=== PATIENT | female | born 1980 | race Hispanic/Latino ===

== ENCOUNTER → 2016-06-22 | Outpatient (CLI) | payer OTHER ==
[~2016-06-22] VITALS: Ht 154.9 cm; Wt 79.4 kg
[~2016-06-22] MED LIST: COLA100C PO; LIDOCAINE 2% INJ 100 MG/5 ML SDV (FOR ANES.) As Ordered ONE; NS 1,000 ML IV SCH; PROPOFOL 200 MG/20 ML VIAL As Ordered ONE
--- NOTE | 2016-06-22 09:08 | ROOR ---
Patient Name: Rosenda Johnston Procedure Date: 06/22/2016 8:55 AM Date of : 1980 Age: 35 Room: [facility] Gender: Female Note Status: Finalized Procedure: Colonoscopy Indications: Rectal bleeding Providers: Kishan Shannon Jr, MD Referring MD: SUKHI ISBELL MD Requesting Provider: Medicines: Propofol per Anesthesia Complications: No immediate complications. Procedure: Pre-Anesthesia Assessment: - Prior to the procedure, a History and Physical was performed, and patient medications and allergies were reviewed. The patient is competent. The risks and benefits of the procedure and the sedation options and risks were discussed with the patient. All questions were answered and informed consent was obtained. Patient identification and proposed procedure were verified by the physician and the nurse in the pre-procedure area and in the procedure room. Mental Status Examination: alert and oriented. Airway Examination: normal oropharyngeal airway and neck mobility. Respiratory Examination: clear to auscultation. CV Examination: normal. ASA Grade Assessment: I - A normal, healthy patient. After reviewing the risks and benefits, the patient was deemed in satisfactory condition to undergo the procedure. The anesthesia plan was to use moderate sedation / analgesia (conscious sedation). Immediately prior to administration of medications, the patient was re-assessed for adequacy to receive sedatives. The heart rate, respiratory rate, oxygen saturations, blood pressure, adequacy of pulmonary ventilation, and response to care were monitored throughout the procedure. The physical status of the patient was re-assessed after the procedure. The Colonoscope was introduced through the anus and advanced to the cecum, identified by appendiceal orifice and ileocecal valve. The colonoscopy was performed without difficulty. The patient tolerated the procedure well. The quality of the bowel preparation was adequate and excellent. Findings: The perianal and digital rectal examinations were normal. Pertinent negatives include normal sphincter tone, no palpable rectal lesions and no anal lesion or abnormality was detected. The rectum, recto-sigmoid colon, sigmoid colon, descending colon, transverse colon, ascending colon, cecum, appendiceal orifice and ileocecal valve appeared normal. Impression: - The rectum, recto-sigmoid colon, sigmoid colon, descending colon, transverse colon, ascending colon, cecum, appendiceal orifice and ileocecal valve are normal. - No specimens collected. Recommendation: - Repeat colonoscopy at age 52 for screening purposes. Kishan Shannon MD Kishan Shannon Jr, MD 06/22/2016 9:08:14 AM This report has been signed electronically. Number of Addenda: 0 Note Initiated On: 06/22/2016 8:55 AM Estimated Blood Loss: Estimated blood loss: none.
[2016-06-22 09:42] VITALS: BP 100/70
== END ==
LOC: M OPP 07:42
PROVIDERS: ATTEND Surgery
DX: K62.5 Hemorrhage of anus and rectum (principal); K60.1 Chronic anal fissure; K59.00 Constipation, unspecified; G43.909 Migraine, unspecified, not intractable, without status migrainosus; Z79.899 Other long term (current) drug therapy

== ENCOUNTER 2016-06-23 16:14 | Emergency (ER) | payer OTHER ==
[~2016-06-23] VITALS: Ht 154.9 cm; Wt 75.3 kg
[~2016-06-23 16:14] MED LIST changes: -LIDOCAINE 2% INJ 100 MG/5 ML SDV (FOR ANES.) As Ordered ONE; -NS 1,000 ML IV SCH; -PROPOFOL 200 MG/20 ML VIAL As Ordered ONE
[2016-06-23 16:20] VITALS: BP 134/87
--- NOTE | 2016-06-24 12:26 | ECGEPIP ---
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
== END 2016-06-23 17:49 | disposition home or self-care (01) ==
LOC: M ED 17:27
DX: M94.0 Chondrocostal junction syndrome [Tietze] (principal)

== ENCOUNTER → 2017-05-24 | Outpatient (REF) | payer OTHER | LOC: M SFHCLERA 17:10 | DX: J02.9 Acute pharyngitis, unspecified (principal) ==

== ENCOUNTER 2017-06-26 06:22 | Day surgery (SDC) | payer OTHER ==
[2017-06-26] MEDS ORDERED: LR 1,000 ML IV ×2 (06:30→10:00)
[2017-06-26] MEDS ORDERED: ROCURONIUM BROMIDE 50 MG/5 ML VIAL As Ordered ×2 (07:15→08:54)
[2017-06-26] MEDS ORDERED: MIDAZOLAM INJ 2 MG/2 ML VIAL (J2250) As Ordered (07:15)
[2017-06-26] MEDS ORDERED: PROPOFOL 200 MG/20 ML VIAL As Ordered (07:15)
[2017-06-26] MEDS ORDERED: LIDOCAINE 2% INJ 100 MG/5 ML SYRINGE As Ordered (07:15)
[2017-06-26] MEDS ORDERED: fentaNYL 100 MCG/2 ML INJECTION (J3010) As Ordered ×2 (07:16→08:24)
[2017-06-26 07:19] LABS: HEMATOCRIT 39.5 % (36.0-47.0); HEMOGLOBIN 13.9 g/dl (12.0-16.0)
[2017-06-26 07:43] LABS: CONTROL LINE HCG INT CTR LINE PRESENT; HCG, SERUM QUALITATIVE NEGATIVE (NEGATIVE)
[2017-06-26] MEDS ORDERED: ePHEDrine INJ 50 MG/ML VIAL As Ordered (08:14)
[2017-06-26] MEDS ORDERED: dexameTHASONE 4 MG/ML 1ML VIAL (J1100) As Ordered (08:23)
[2017-06-26] MEDS: BUPIVACAINE HCL 0.25% 30 ML VIAL As Ordered (08:44)
[2017-06-26] MEDS ORDERED: NEOSTIGMINE 10 MG/10 ML VIAL (J2710) As Ordered (09:03)
[2017-06-26] MEDS ORDERED: ONDANSETRON 4MG/2ML VIAL (J2405) As Ordered (09:03)
[2017-06-26] MEDS ORDERED: KETOROLAC 60 MG/2 ML VIAL (J1885) As Ordered (09:03)
[2017-06-26] MEDS ORDERED: GLYCOPYRROLATE INJ 0.2 MG/ML 2 ML VIAL As Ordered (09:03)
[2017-06-26] MEDS: SILVER NITRATE APPLICATOR As Ordered (09:05)
[2017-06-26] MEDS ORDERED: SUGAMMADEX SODIUM 500 MG/5 ML VIAL (BRIDION) As Ordered (09:11)
[2017-06-26] MEDS ORDERED: MEPERIDINE INJ 25 MG/ML VIAL (J2175) IV (10:00)
[2017-06-26] MEDS ORDERED: ONDANSETRON 4MG/2ML VIAL (J2405) IV (10:00)
[2017-06-26] MEDS ORDERED: fentaNYL 100 MCG/2 ML INJECTION (J3010) IV (10:00)
== END 2017-06-26 11:32 | disposition home or self-care (01) ==
LOC: M SDC 06:22
DX: Z30.2 Encounter for sterilization (principal); N83.8 Other noninflammatory disorders of ovary, fallopian tube and broad ligament; G43.909 Migraine, unspecified, not intractable, without status migrainosus; E66.9 Obesity, unspecified; I49.9 Cardiac arrhythmia, unspecified; Z79.899 Other long term (current) drug therapy
CPT/HCPCS: 58661

== ENCOUNTER → 2017-12-10 | Outpatient (CLI) | payer OTHER | LOC: M LRY 11:15 | DX: S61.451A Open bite of right hand, initial encounter (principal); W54.0XXA Bitten by dog, initial encounter; Y92.9 Unspecified place or not applicable | CPT/HCPCS: 73130 ==

== ENCOUNTER → 2023-06-07 | Outpatient (CLI) | payer OTHER ==
[~2023-06-07] MED LIST changes: -COLA100C PO; +COLA100C5 PO; +TOPA100T12
[2023-06-07 14:51] LABS: HEMOGLOBIN A1c 4.8 % (4.0-6.0)
[2023-06-07 15:05] LABS: THYROID STIMULATING HORMONE 2.457 uIU/ML (0.55-4.78)
[2023-06-07 15:06] LABS: FREE T4 1.12 NG/DL (0.89-1.76)
== END ==
LOC: M PLALAB 10:43
PROVIDERS: ATTEND Nurse Practitioner Family
DX: E28.2 Polycystic ovarian syndrome (principal); R63.5 Abnormal weight gain; R30.0 Dysuria; N73.9 Female pelvic inflammatory disease, unspecified; Z11.3 Encounter for screening for infections with a predominantly sexual mode of transmission

== ENCOUNTER → 2023-06-15 | Outpatient (CLI) | payer OTHER | LOC: M WHC 12:12 | PROVIDERS: ATTEND Nurse Practitioner Family | DX: E28.2 Polycystic ovarian syndrome (principal) ==

== ENCOUNTER → 2023-09-10 | Outpatient (REF) | payer OTHER | LOC: M SFHCWAGY 10:07 | PROVIDERS: ATTEND Nurse Practitioner Family | DX: Z12.4 Encounter for screening for malignant neoplasm of cervix (principal); Z11.51 Encounter for screening for human papillomavirus (HPV); Z01.419 Encounter for gynecological examination (general) (routine) without abnormal findings; Z77.9 Other contact with and (suspected) exposures hazardous to health ==

== ENCOUNTER → 2023-09-10 | Outpatient (CLI) | payer OTHER | LOC: M WHC 07:37 | PROVIDERS: ATTEND Nurse Practitioner Family | DX: Z12.31 Encounter for screening mammogram for malignant neoplasm of breast (principal) | CPT/HCPCS: 77063; 77067; G0123 ==